=== PATIENT | female | born 1960 | race Caucasian/White ===

== ENCOUNTER → 2021-01-28 | Outpatient (CLI) | payer OTHER ==
[~2021-01-28] MED LIST: ASPIR-LOW81 MG PO; BYSTOLIC5 MG PO; CHLORTHALIDONE25 MG PO; CLONIDINE PATCH TOP; COLACE 100MG C100 MG PO; EDARBI80 MG PO; ESTRA PO; FISH OIL 1,0001 EAC3 PO; FLEXERIL 10 MG10 MG PO; IMMUNE COMPLEX PO; LIPITOR TAB 2020 MG PO; MEDROL4 MG PO; MEGA BIOTIN10000 MCG PO; METFORMIN HCL500 M1 PO; NORCO 5-325 TA1 EACH PO; NORVASC 5 MG TAB5 MG PO; ONE DAILY FOR1 EAC3 PO; PRENATAL VITAM1 EAC3 PO; PROBIOTIC COMP1 EACH PO; PROBIOTIC1 EAC1 PO; PROGEST PO; PROTONIX 40 MG40 M1 PO; PROTONIX40 MG PO; SPIRONOLACTONE25 MG PO; STOOL SOFTENER100 M1 PO; THERAGRAN TAB1 EA PO; VALISONE 0.1% C15 GM TOP; VITAMIN B-121000 MC3 PO; VITAMIN C250 MG PO; VITAMIN D1000 UNI1 PO; VITAMIN D32000 UNI1 PO; [UNRECOGNIZED DRUG - OTHER] PO
== END ==
LOC: MRI 13:44
DX: R20.2 Paresthesia of skin (principal)
CPT/HCPCS: 70551; 93880